=== PATIENT | female | born 1995 | race Two or more races ===

== ENCOUNTER 2021-10-31 18:22 | Emergency (ER) | payer OTHER ==
[~2021-10-31] VITALS: Ht 152.4 cm; Wt 84.4 kg
[2021-10-31] MEDS ORDERED: FOLIC ACID20 MG PO (19:03)
[2021-10-31] MEDS ORDERED: VIT B6 PO (19:04)
[2021-10-31] MEDS ORDERED: ACETAMINOPHEN650 M2 PO (21:31)
== END 2021-10-31 21:43 | disposition home or self-care (01) ==
LOC: ER 18:22
DX: O26.892 Other specified pregnancy related conditions, second trimester (principal); Z3A.14 14 weeks gestation of pregnancy; R51.9 Headache, unspecified; Z20.822 Contact with and (suspected) exposure to COVID-19; Z88.6 Allergy status to analgesic agent; Z91.013 Allergy to seafood

== ENCOUNTER 2022-02-07 20:39 | Inpatient (IN) | payer OTHER ==
[~2022-02-07] VITALS: Ht 149.9 cm; Wt 91.6 kg
[~2022-02-07 20:39] MED LIST: ACETAMINOPHEN650 M2 PO; FOLIC ACID20 MG PO; VIT B6 PO
[2022-02-07] MEDS ORDERED: PRENATAL TABLE1 EAC3 PO (22:41)
[2022-02-07] MEDS ORDERED: PANADOL EXTRA500 MG PO (22:42)
== END 2022-02-09 09:40 | disposition home or self-care (01) | DRG 833 ==
LOC: LDR 20:39 → OB/GYN 02-08 13:31
PROVIDERS: ADMIT Obstetrics & Gynecology; ATTEND Obstetrics & Gynecology
PROC: 4A1HXCZ Monitoring of Products of Conception, Cardiac Rate, External Approach (ICD-10-PCS; principal; 2022-02-07)
PROC: BU4CZZZ Ultrasonography of Uterus and Ovaries (ICD-10-PCS; 2022-02-08)
PROC: BY4FZZZ Ultrasonography of Third Trimester, Single Fetus (ICD-10-PCS; 2022-02-08)
DX: O60.03 Preterm labor without delivery, third trimester (principal); O26.853 Spotting complicating pregnancy, third trimester; O26.843 Uterine size-date discrepancy, third trimester; Z3A.28 28 weeks gestation of pregnancy; Z20.822 Contact with and (suspected) exposure to COVID-19

== ENCOUNTER 2022-04-14 13:00 | Inpatient (IN) | payer OTHER ==
[~2022-04-14] VITALS: Ht 152.4 cm; Wt 98.4 kg
[~2022-04-14 13:00] MED LIST changes: +PANADOL EXTRA500 MG PO; +PRENATAL TABLE1 EAC3 PO
[2022-04-26] MEDS ORDERED: ONDANSETRON HCL4 MG PO (06:45)
== END 2022-04-28 10:08 | disposition home or self-care (01) | DRG 807 ==
LOC: EDSTATUS 13:00 → LDR 04-26 04:55 → OB/GYN 04-26 04:55
PROVIDERS: ADMIT Obstetrics & Gynecology; ATTEND Obstetrics & Gynecology
PROC: 10E0XZZ Delivery of Products of Conception, External Approach (ICD-10-PCS; principal; 2022-04-26)
PROC: 4A1HXCZ Monitoring of Products of Conception, Cardiac Rate, External Approach (ICD-10-PCS; 2022-04-26)
DX: O80 Encounter for full-term uncomplicated delivery (principal); Z37.0 Single live birth; Z3A.39 39 weeks gestation of pregnancy; Z20.822 Contact with and (suspected) exposure to COVID-19

== ENCOUNTER 2022-04-25 12:29 | Outpatient (CLI) | payer OTHER ==
[2022-04-26] MEDS ORDERED: ONDANSETRON HCL4 MG PO (06:45)
== END 2022-04-25 13:34 | disposition home or self-care (01) ==
LOC: NST 12:29
PROVIDERS: ATTEND Obstetrics & Gynecology Gynecology
DX: Z34.83 Encounter for supervision of other normal pregnancy, third trimester (principal)